=== PATIENT | female | born 1985 | race Asian ===

== ENCOUNTER 2017-08-01 17:47 | Inpatient (IN) | payer OTHER ==
[2017-08-01] MEDS ORDERED: OBEPIDURAL* 250 ML ONE (18:08)
[2017-08-01 18:31] LABS: Hematocrit 40 % (35-47); Hemoglobin 13.8 g/dl (12.0-16.0); Mean Corpuscular HGB Conc 34 g/dl (31-36); Mean Corpuscular Hemoglobin 32 pg (27-31); Mean Corpuscular Volume 93 fL (80-97); Mean Platelet Volume 8 um3 (7.4-10.4); Red Blood Count 4.33 10^6/ul (4.0-5.4); Red Cell Distribution Width 14 % (10.5-15); White Blood Count 12.7 10^3/ul (3.5-10.8)
[2017-08-01] MEDS ORDERED: Sodium Citrate/Citric Acid* 15 ML UDC PO PRN (19:00)
[2017-08-01] MEDS ORDERED: Famotidine TAB* 20 MG PO PRN (19:00)
[2017-08-01] MEDS ORDERED: OBEPIDURAL* 250 ML EPIDURAL SCH (19:00)
[2017-08-01] MEDS ORDERED: Phenylephrine IV* 40 MCG/ML 10 ML SYRINGE IV PUSH PRN ×2 (19:00)
[2017-08-01] MEDS ORDERED: EPHEDrine (Pressors)* 50 MG/ML VIAL IV PUSH PRN ×2 (19:00)
[2017-08-02] MEDS ORDERED: Oxytocin in LR* 20 UNITS/1,000 ML BAG IVPB ONE (04:19)
[2017-08-02] MEDS ORDERED: Acetaminophen TAB* 325 MG PO PRN (04:49)
[2017-08-02] MEDS ORDERED: Glycerin ADULT SUPP PR PRN (04:49)
[2017-08-02] MEDS ORDERED: Oxytocin in LR* 20 UNITS/1,000 ML BAG IVPB SCH (05:00)
[2017-08-02] MEDS: Ibuprofen TAB* 600 MG PO PRN ×2 (08:06→21:02)
[2017-08-02] MEDS: Witch Hazel PAD* JAR TOPICAL PRN (08:07)
[2017-08-02] MEDS: Dibucaine 1% 28.35 GM TUBE PR PRN (08:07)
[2017-08-02] MEDS: Docusate CAP* 100 MG PO SCH ×3 (09:00→21:02)
[2017-08-03] MEDS: Ibuprofen TAB* 600 MG PO PRN ×3 (03:21→21:46)
[2017-08-03 06:59] LABS: Hematocrit 32 % (35-47); Mean Corpuscular HGB Conc 35 g/dl (31-36); Mean Corpuscular Hemoglobin 33 pg (27-31); Mean Corpuscular Volume 94 fL (80-97); Mean Platelet Volume 8 um3 (7.4-10.4); Red Blood Count 3.38 10^6/ul (4.0-5.4); Red Cell Distribution Width 14 % (10.5-15); White Blood Count 12.2 10^3/ul (3.5-10.8)
[2017-08-03] MEDS: Docusate CAP* 100 MG PO SCH ×3 (08:25→21:46)
[2017-08-03] MEDS ORDERED: Ferrous Gluconate TAB* 324 MG TAB PO SCH (09:00)
[2017-08-03] MEDS: Witch Hazel PAD* JAR TOPICAL PRN (14:20)
[2017-08-03] MEDS: Dibucaine 1% 28.35 GM TUBE PR PRN (14:21)
[2017-08-04] MEDS: Docusate CAP* 100 MG PO SCH ×2 (07:45→15:59)
[2017-08-04] MEDS: Ibuprofen TAB* 600 MG PO PRN ×2 (07:45→15:59)
[2017-08-04 10:41] VITALS: BP 129/81
--- NOTE | 2017-08-04 11:59 | PTEDU ---
Patient Name: ELIAZAR HILL HILLALEJOCATHIBIANCA selected video: Never Ever Shake a Baby to view on 08/04/2017 at 11:59:[address] [facility]
--- NOTE | 2017-08-04 12:35 | PTEDU ---
Patient Name: ELIAZAR HILL ELIAZAR HILL selected video: BBOB: Bonding Through Infant Massage to view on 08/04/2017 at 12:34:35 P [id number]
== END 2017-08-04 16:49 | disposition home or self-care (01) | DRG 560 ==
LOC: MCHOBOUT 17:47 → MCHOB 18:01
PROVIDERS: ADMIT Midwife; ATTEND Midwife
PROC: 10907ZC Drainage of Amniotic Fluid, Therapeutic from Products of Conception, Via Natural or Artificial Opening (ICD-10-PCS; principal; 2017-08-02)
PROC: 4A1HX4Z Monitoring of Products of Conception, Cardiac Electrical Activity, External Approach (ICD-10-PCS; 2017-08-02)
PROC: 10E0XZZ Delivery of Products of Conception, External Approach (ICD-10-PCS; 2017-08-02)
PROC: 0W8NXZZ Division of Female Perineum, External Approach (ICD-10-PCS; 2017-08-02)
DX: O69.3XX0 Labor and delivery complicated by short cord, not applicable or unspecified (principal); O77.0 Labor and delivery complicated by meconium in amniotic fluid; Z3A.39 39 weeks gestation of pregnancy; Z37.0 Single live birth
CPT/HCPCS: 36415; 85025; 85027; 86850; 86900; 86901; A9270-GY